=== PATIENT | male | born 1950 | race Caucasian/White ===

== ENCOUNTER 2023-01-08 15:39 | Outpatient (REF) | payer MEDICARE, SELFPAY ==
[2023-01-08 22:01] LABS: Bilirubin Negative (Negative); Blood Negative (Negative); Clarity Cloudy (Clear); Glucose Negative (Negative); Ketones Negative (Negative); Leukocyte Esterase Negative (Negative); Nitrite Negative (Negative); Specific Gravity >= 1.030 (1.005-1.025); Urobilinogen 0.2 mg/dL (Up to 0.2)
[2023-01-08 22:15] LABS: Hemoglobin A1C 5.6 % (<5.7)
[2023-01-08 22:37] LABS: Vitamin D 25 Total 27.1 ng/mL (30-100)
[2023-01-08 22:44] LABS: ALT 46 U/L (16-63); AST 36 U/L (15-37); Albumin 3.9 g/dL (3.4-5.0); Alkaline Phosphatase 74 U/L (46-116); Anion Gap 8.1 mmol/L (3-11); BUN 25 mg/dL (7-18); Bilirubin, Total 0.3 mg/dL (0.2-1.0); CO2 28.9 mmol/L (21.0-32.0); CREATININE 0.8 mg/dL (0.70-1.30); Calcium 8.8 mg/dL (8.5-10.1); Chloride 107 mmol/L (98-107); Estimated GFR 93.45 (mL/min/1.73m2); Folate > 20.0 ng/mL (8.6-20.0); Glucose 82 mg/dL (74-106); Potassium 3.9 mmol/L (3.5-5.1); Sodium 144 mmol/L (136-145); TSH (W/Ref FT4) 2.21 uIU/mL (0.36-3.74); Total Protein 7.3 g/dL (6.4-8.2); Vitamin B12 520 pg/mL (193-986)
[2023-01-10 02:10] LABS: PSA, Screening 4.5 ng/mL (<=6.5)
== END 2023-01-08 15:40 | disposition home or self-care (01) ==
LOC: NCHCN 15:39
PROVIDERS: Visit Provider Family Medicine
DX: R41.3 Other amnesia (principal); R35.0 Frequency of micturition; R27.9 Unspecified lack of coordination; E66.3 Overweight; N52.9 Male erectile dysfunction, unspecified; E55.9 Vitamin D deficiency, unspecified; R79.89 Other specified abnormal findings of blood chemistry; Z12.5 Encounter for screening for malignant neoplasm of prostate
CPT/HCPCS: 80053; 82306; 84153; 81003; 82607; 82746; 83036; 84443

== ENCOUNTER 2023-01-21 08:31 | Outpatient (REF) | payer MEDICARE, SELFPAY ==
[2023-01-21 15:16] LABS: Calculated LDL 100 mg/dL (<100); Cholesterol 180 mg/dL (<200); HDL Cholesterol 56 mg/dL (40-60); Triglyceride 120 mg/dL (<150)
== END 2023-01-21 08:32 | disposition home or self-care (01) ==
LOC: NCHCN 08:31
PROVIDERS: Visit Provider Family Medicine
DX: Z13.220 Encounter for screening for lipoid disorders (principal)
CPT/HCPCS: 80061

== ENCOUNTER 2024-10-17 15:34 | Outpatient (REF) | payer MEDICARE, SELFPAY ==
[2024-10-17 16:31] LABS: Abs Immature Grans 0.02 10^3/uL (0.0-0.06); Absolute Basophil Count 0.06 10^3/uL (0.0-0.2); Absolute Eosinophil Count 0.32 10^3/uL (0.0-0.7); Absolute Lymphocyte Count 1.79 10^3/uL (1.2-3.4); Absolute Monocyte Count 0.48 10^3/uL (0.1-0.8); Absolute Neutrophil Count 5.01 10^3/uL (1.2-6.7); Basophils % 0.8 %; Eosinophils % 4.2 %; HCT 43.4 % (40.0-50.0); HGB 14.7 g/dL (13.5-17.5); Immature Grans % 0.3 %; Lymphocytes % 23.3 %; MCH 30.2 pg (27.0-33.0); MCHC 33.9 % (32.0-36.0); MCV 89 fL (80-95); MPV 10.3 fL (8.0-11.0); Monocytes % 6.3 %; Neutrophils % 65.1 %; Platelet Count 261 10^3/uL (130-400); RBC 4.87 10^6/uL (4.36-5.78); RDW 12.4 % (11.8-14.1); RDW-SD 40.5 fL; WBC 7.68 10^3/uL (4.4-10.8)
[2024-10-17 17:24] LABS: ALT 31 U/L (16-63); AST 25 U/L (15-37); Albumin 4.1 g/dL (3.4-5.0); Alkaline Phosphatase 77 U/L (46-116); Anion Gap 11.2 mmol/L (3-11); BUN 19 mg/dL (7-18); Bilirubin, Total 0.38 mg/dL (0.2-1.0); CO2 25.8 mmol/L (21.0-32.0); CREATININE 0.9 mg/dL (0.70-1.30); Calcium 9.5 mg/dL (8.5-10.1); Calculated LDL 35 mg/dL (<100); Chloride 105 mmol/L (98-107); Cholesterol 111 mg/dL (<200); Estimated GFR 89.07 (mL/min/1.73m2); Glucose 96 mg/dL (74-106); HDL Cholesterol 57 mg/dL (40-60); Potassium 3.9 mmol/L (3.5-5.1); Sodium 142 mmol/L (136-145); Total Protein 7.7 g/dL (6.4-8.2); Triglyceride 99 mg/dL (<150)
[2024-10-18 18:08] LABS: PSA, Screening 3.1 ng/mL (<=6.5)
== END 2024-10-17 15:35 | disposition home or self-care (01) ==
LOC: NCHCN 15:34
PROVIDERS: PCP Family Medicine; Visit Provider Family Medicine
DX: E78.5 Hyperlipidemia, unspecified (principal); R35.0 Frequency of micturition; I10 Essential (primary) hypertension
CPT/HCPCS: 80053; 80061; 84153; 85025

== ENCOUNTER 2024-11-10 15:21 | Outpatient (CLI) | payer MEDICARE, SELFPAY ==
--- NOTE | 2024-11-10 09:45 | DI.RAD_ITS ---
Exam(s) XR KNEE RT 3V AP,LAT,AGUSTINA EXAM: XR KNEE RT 3V AP,LAT,AGUSTINA CLINICAL HISTORY: right knee pain. TECHNIQUE: 2D digital imaging was performed. Three images were obtained. Merchant's, AP and lateral views were obtained. COMPARISON: DX MO KNEE RIGHT MIN 4V from 07/01/2018 FINDINGS: BONES: There are stable post operative changes of a unilateral right knee arthroplasty present. No f racture or dislocation. JOINTS: The orthopedic hardware is in good position. No evidence of hardware loosening. There are d egenerative changes seen in the lateral femoral tibial patellofemoral joint characterized by joint sp varinder narrowing and osteophytes. There is a small joint effusion. SOFT TISSUE: Normal. IMPRESSION: 1. Stable unilateral right knee arthroplasty. 2. Moderate degenerative changes of the right knee. DATA REPOSITORY: RADIATION DOSE DELIVERED:
--- NOTE | 2024-11-10 09:45 | DI.RAD_ITS ---
Exam(s) XR KNEE LT 3V AP,LAT,AGUSTINA EXAM: XR KNEE LT 3V AP,LAT,AGUSTINA CLINICAL HISTORY: left knee pain. TECHNIQUE: 2D digital imaging was performed. Three images were obtained. Merchant's, AP and lateral views were obtained. COMPARISON: CR XR KNEE 4V LT from 09/03/2023 FINDINGS: BONES: There are stable post operative changes of a left unilateral knee arthroplasty present. No fr acture or dislocation. JOINTS: The orthopedic hardware is in good position. No evidence of hardware loosening. There is a joint effusion. Degenerative changes are seen in the lateral joint compartment characterized by join t space narrowing. There osteophytes seen at the posterior patella. SOFT TISSUE: Vascular calcifications are present. IMPRESSION: Stable left unilateral knee arthroplasty. DATA REPOSITORY: RADIATION DOSE DELIVERED:
== END 2024-11-10 15:22 | disposition home or self-care (01) ==
LOC: DIORS 15:21
PROVIDERS: PCP Family Medicine; Referring Provider Family Medicine; Visit Provider Student in an Organized Health Care Education/Training Program
DX: M17.11 Unilateral primary osteoarthritis, right knee (principal); M17.12 Unilateral primary osteoarthritis, left knee
CPT/HCPCS: 73562; 99203

== ENCOUNTER 2024-11-16 01:51 | Outpatient (CLI) | payer MEDICARE, SELFPAY ==
--- NOTE | 2024-11-16 06:45 | DI.NM_ITS ---
Exam(s) NM BONE SCAN 3 PHASE EXAM: NM BONE SCAN 3 PHASE CLINICAL HISTORY: PAIN, ?LOOSENING JOHNATHAN KNEE,bilat oa,M17.12,m17.11. TECHNIQUE: Injected Dose: 25 mCi Tc-99m MDP COMPARISON: DX MO KNEE RIGHT MIN 4V from 07/01/2018 CR XR KNEE 4V LT from 09/03/2023 CR XR KNEE RT 3V AP,LAT,AGUSTINA from 11/10/2024 CR XR KNEE LT 3V AP,LAT,AGUSTINA from 11/10/2024 FINDINGS: Perfusion: Symmetric. Blood Pool: Mild increased activity around the left knee. Delayed: Mildly increased activity seen on beneath the tibial components of both medial femoral tibia l joint space prostheses. Findings are greater on the left. Findings are suspicious for loosening. IMPRESSION: 1. Hyperemia around the left knee. Increased activity, left greater than right adjacent to the tibia l component of the the knee prosthesis bilaterally, left greater than right which could indicate loos ening. DATA REPOSITORY:
== END 2024-11-16 02:11 ==
LOC: DI 01:51
PROVIDERS: PCP Family Medicine; Visit Provider Student in an Organized Health Care Education/Training Program
DX: M17.0 Bilateral primary osteoarthritis of knee (principal); Z98.890 Other specified postprocedural states; Z96.653 Presence of artificial knee joint, bilateral
CPT/HCPCS: 78315

== ENCOUNTER 2025-01-23 13:42 | Outpatient (CLI) | payer MEDICARE, SELFPAY ==
--- NOTE | 2025-01-23 10:45 | DI.RAD_ITS ---
Exam(s) XR STANDING ALIGNMENT EXAM: XR STANDING ALIGNMENT CLINICAL HISTORY: TKR Planning. TECHNIQUE: 2D digital imaging was performed. Standing AP views were performed from the pelvis throu gh the ankles. COMPARISON: DX MO KNEE RIGHT MIN 4V from 07/01/2018 CR XR KNEE 4V LT from 09/03/2023 CR XR KNEE RT 3V AP,LAT,AGUSTINA from 11/10/2024 CR XR KNEE LT 3V AP,LAT,AGUSTINA from 11/10/2024 NM NM BONE SCAN 3 PHASE from 11/16/2024 FINDINGS: BONES: No acute fracture is present. No bony destructive lesion is seen. Leg length discrepancy: There is a minimal overall leg length discrepancy, with the right femoral hea d projecting few millimeter superior to the left. JOINTS: Knees: Bilateral medial femoral tibial joint space prostheses. There is some lateral subluxa tion of the tibia respect with respect to the femur bilaterally. There is flattening of the tibial s pines and spurring at the femoral intercondylar notch bilaterally. There is mild bilateral varus ang ulation at the knees. The ankle joints show mild, symmetric bilateral joint space narrowing. The hip joints are unremarkable. SOFT TISSUE: Normal. IMPRESSION: Bilateral medial femoral tibial joint space prostheses. Mild leg length discrepancy. DATA REPOSITORY: RADIATION DOSE DELIVERED:
== END 2025-01-23 13:43 | disposition home or self-care (01) ==
LOC: DIORS 13:42
PROVIDERS: PCP Family Medicine; Referring Provider Family Medicine; Visit Provider Student in an Organized Health Care Education/Training Program
DX: T84.033A Mechanical loosening of internal left knee prosthetic joint, initial encounter (principal); M21.751 Unequal limb length (acquired), right femur
CPT/HCPCS: 99213; 77073

== ENCOUNTER 2025-02-08 21:46 | Outpatient (REF) | payer MEDICARE, SELFPAY ==
[2025-02-08 22:00] LABS: HCT 40.5 % (40.0-50.0); HGB 13.3 g/dL (13.5-17.5); MCH 29.8 pg (27.0-33.0); MCHC 32.8 % (32.0-36.0); MCV 91 fL (80-95); MPV 10.3 fL (8.0-11.0); Platelet Count 247 10^3/uL (130-400); RBC 4.47 10^6/uL (4.36-5.78); RDW 13.3 % (11.8-14.1); RDW-SD 44.6 fL; WBC 6.15 10^3/uL (4.4-10.8)
[2025-02-08 22:05] LABS: Anion Gap 2.3 mmol/L (3-11); BUN 20 mg/dL (7-18); CO2 30.7 mmol/L (21.0-32.0); Calcium 8.7 mg/dL (8.5-10.1); Chloride 107 mmol/L (98-107); Estimated GFR 78.49 (mL/min/1.73m2); Glucose 92 mg/dL (74-106); Potassium 3.8 mmol/L (3.5-5.1); Sodium 140 mmol/L (136-145)
== END 2025-02-08 21:47 | disposition home or self-care (01) ==
LOC: NCHCN 21:46
PROVIDERS: PCP Family Medicine; Visit Provider Family Medicine
DX: Z01.818 Encounter for other preprocedural examination (principal)
CPT/HCPCS: 80048; 85027

== ENCOUNTER 2025-02-22 09:55 | Inpatient (IN) | payer MEDICARE, SELFPAY ==
[2025-02-22] VITALS (28 sets, daily range): BP systolic 86–131; BP diastolic 45–82; PULSE 47–63; RESP 9–22; TEMP 35.9–36.9; O2SAT 83–96; BMI 28.4
[2025-02-22] MEDS: Acetaminophen 500 MG TAB 1000 MG PO ×3 (10:39→20:24)
[2025-02-22] MEDS: Celecoxib 200 MG CAP 400 MG PO (10:39)
[2025-02-22] MEDS: Lactated Ringers 1,000 ML 80 ML IV (10:39)
[2025-02-22] MEDS: Gabapentin 300 MG CAP PO ×3 (10:40→20:25)
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
--- NOTE | 2025-02-22 12:21 | W.ANESNERVE ---
Nerve Block Single Injection Procedure Date and Time Date Performed: 02/22/25 Procedure Start: 11:55 Location Where Procedure Performed Procedure Location: Day Surgery Unit Reason Performed: Postoperative Analgesia Requesting Provider: John Nathan Timeout Performed Timeout Performed: Yes Monitoring Used ECG, Blood Pressure, SpO2 and See EMR for corresponding vital signs Sterility Sterility: Hand Hygiene, Surgical Cap, Surgical Mask, Sterile Gloves and Chlorhexidine Sedation Given During Procedure Sedation Given (Indicate Dose Given): No Sedation given Patient Mental Status Patient Mental Status: Awake Nerve Block 1st Nerve Block: Laterality: Left Block Type: Adductor Canal Ultrasound Image Saved?: Yes Needle / Catheter Used: 100mm SonoPlex II Local Anesthetic Bolus (Indicate Dose Given): Lidocaine used for local infiltration of skin, Injected in 3-5ml increments after negative blood aspiration, Bupivacaine 0.25% Dose:: 5 ml and Exparel Dose:: 5 ml Additives (Indicate Dose Given): Normal Saline Ultrasound: Sterile probe cover and gel used Nerve Stimulator: Supplement to Ultrasound use and No twitch or parasthesia noted < 0.5 mA Paresthesia: None Procedure Tolerated: No Complications and Patient tolerated well Procedure Outcome: Successful Performed By: Hernán Roberson Supervised By: Thomas Yi 2nd Nerve Block: Laterality: Left Block Type: Other (anterior femoral cutaneous nerve of the thigh) Ultrasound Image Saved?: Yes Needle / Catheter Used: 100mm SonoPlex II Local Anesthetic Bolus (Indicate Dose Given): Lidocaine used for local infiltration of skin, Injected in 3-5ml increments after negative blood aspiration, Bupivacaine 0.25% Dose:: 5 ml and Exparel Dose:: 5 ml Additives (Indicate Dose Given): Normal Saline Ultrasound: Sterile probe cover and gel used Nerve Stimulator: Supplement to Ultrasound use and No twitch or parasthesia noted < 0.5 mA Paresthesia: None Procedure Tolerated: No Complications and Patient tolerated well Procedure Outcome: Successful Performed By: Hernán Roberson Supervised By: Thomas Yi
[2025-02-22] MEDS: ceFAZolin 2 GM/50 ML BAG IVPB (12:49)
[2025-02-22] MEDS: TRANEXAMIC ACID/SOD. CHL. 1,000 MG/100 ML BAG 600 MG IVPB (12:53)
--- NOTE | 2025-02-22 15:20 | ROE_ITS ---
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 Depuy Attune Cruciate Retaining Femoral Component, Size 7 2. Depuy Attune Fixed Bearing Tibial Component, Size 7 3. Depuy Attune 7x12 CR, FB Poly 4. Depuy Attune Patellar Component, Size 38 Indications: I have seen Manuel in clinic for symptoms of knee arthritis, confirmed with radiographic findings. Manuel has exhausted nonoperative methods and was having significant limitations in daily function and desired better function and less pain. I discussed the technical details of a knee replacement. I explained the risks of the procedure to include, but not limited to, bleeding, infection, pain, stiffness, fracture, damage to nerves and vessels, damage to muscles and tendons, loosening, need for repeat procedure, blood clot and cardiopulmonary demise. Despite these risks, Manuel elected to proceed. 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 The polyethylene was worn down so there was a vzcqc-[id number]-utsco articulation. The component of the tibia was quite loose. The femur was more well-fixed. Intraoperative navigation was utilized to assist with making the initial cuts and a cemented knee replacement was placed. Procedure Description: Jose was greeted in the preoperative holding area where the correct side was identified and marked. The consent was reviewed with the patient and signed. The history and physical was updated. All questions were answered. Preoperative mediacations were administered: Acetaminophen 1000mg, Celebrex 400mg, Gabapentin 300mg, and Oxycontin 10mg. An adductor canal block was then administered by the anesthesia team in the [facility]. He was taken back to the operating room. A spinal anesthestic was then administered. The patient was placed into the supine position on the operating room table. A nonsterile tourniquet was placed high onto the leg but only used for cementing. Posts were placed for positioning during the procedure. All bony prominences were well padded. Prophylactic antibiotics in the form of Cefazolin were administered. 1g of Tranxemic Acid was given intravenously within 30 minutes of incision. The left leg was then prepped with Chloraprep and draped in a standard fashion with impervious stockinette and extremity drape with Iodine impregnated skin protection. A timeout to confirm correct identity, side and site, procedure, allergies, anesthesia, and medical concerns was performed. With the knee in some flexion, a midline incision was made overlying the knee utilizing the previous incision and extending it proximally and distally by few centimeters. Full thickness skin flaps were raised once the extensor mechanism was encountered. These were raised medially and laterally. Any bleeding was controlled with electrocautery. Once the extensor mechanism was fully exposed, a medial parapatellar arthrotomy was performed in a flexed position. All bleeding from the arthrotomy and the geniculate arteries was coagulated. 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 An aggressive synovectomy was performed removing any of this metal stained synovium. After completion of the synovectomy, A medial subperiosteal peel was performed with electrocautery to the midcoronal plane. It was evident at this point that the polyethylene was worn down such that there was [id number] articulation exposed metal of the tibial component anteriorly and medially and the tibial component was relatively loose. The fat pad was removed while keeping the patellar tendon protected. The ACL and PCL were resected and the anterior horn of the lateral meniscus was transected. The knee was then flexed with the patella everted. Prominence of bone and soft tissue from around the femoral component removed for better visualization of the interface between the implant and the cement and bone. I then used a small blade, oscillating saw, 2 separate the cement mantle from the bone and the implant of the femoral component. This was done medially and laterally. I then used a small straight osteotome to remove the component. There was no significant bone loss. A single starting pin was then placed 1cm anterior to the PCL insertion and the notch in the direction of the femoral head. The OrthoAlign device was applied over the pin. It was oriented to be in line with the epicondylar axis and the trochlear groove. It was then pinned into place. The navigation computer was then turned on and calibrated. The distal femur cut was set at 0 degrees varus/valgus and 3.5 degrees flexion. The distal femur cutting guide then was positioned for a 9mm cut from the lateral condyle. The distal femur was cut with an oscillating saw while protecting the soft tissues. This skim the medial side getting fresh bone of the medial femoral condyle. A small plug of cement was removed. The tibia was then addressed. The OrthoAlign device was placed over the tibial tubercle and medial tibia and secured into position. Once again, OrthoAlign was calibrated and then set for a 1.5 degree varus cut and 5.5 degrees of posterior slope. With this locked into position, the cut thickness stylus was used to assess cut thickness. The cut guide was placed just distal to the distal edge of the component. This was then held in position and pinned into place with 2 additional pins and a cross pin for stability. The medial and lateral collateral ligaments were protected and the cut was performed. Before the cut could be completed I used a small flex osteotome to complete the cut around the pegs of the tibial component and use an osteotome to remove it from the host bone. It was relatively loose and was removed without any significant bone loss. I then completed the cut once again with the component gone which went through bone and no remnant cement. With this completed, it was assessed and noted to be of appropriate dimensions. The guide and OrthoAlign was removed. The Orthoalign gap balancing device was then placed in extension. This was used to ensure that the ligaments were properly balanced with up to 2 to 3 mm laxity laterally compared medially. The extension gap was measured as 24mm. The knee was then brought into 90 degrees of flexion and the ligament stringer machine tender was once again placed. Under the same amount of force the flexion gap was measured. The Attune specific jig was placed and the flexion gap was made to match the extension gap. The distal femur was then sized. The anterior stylus was placed onto the lateral ridge of the anterior femur. This indicated a size 7 femur. The 4-in-1 cutting guide was the placed. The posterior medial femur cut was evaluated and appeared of good thickness. The spacer block was inserted underneath the cutting guide and stability was confirmed in 90 degrees of flexion. An justin wing was used to confirm appropriate position of the anterior cut to avoid notching. This cutting guide was ensured to be flush on the cut surface and then pinned into place with headed pins. While protecting the soft tissues, quad tendon, and collateral ligaments, the anterior and posterior cuts were performed with a saw. The central two pins were removed and the posterior and anterior chamfers were cut next. At this point there were no defects in the bone. There is no need for augmentation and thus I decided to proceed with primary tibial and femoral implant, cemented. The notch-cutting guide was placed. This was pinned to lateralize the femoral component as much as possible while keeping it flush on the cut surface. This was then pinned into position. A saw was then used to create the box cut. A trial CR femur was placed. A provisional trial tibial component was placed and the knee was brought through range of motion. There was noted to be excellent extension and flexion. There was no significant instability. The patella was tracking without thumbs. The tibial cut surface was fully exposed. The medial and lateral menisci were removed. The tibia was then sized as a 7. The tibia had been previously marked during trialing to correspond to the center of the tibial component to help with rotation. The trial was aligned to this gregoria, approximately rotated to the medial 1/3rd of the tibial tubercle. The trial was pinned into place. The tibia was prepared with a reamer and a keel punch. The knee was then brought into extension and the patella was measured as 26mm. Using the patellar clamp and cut guide, this was resected to a flat surface with at least 13mm of thickness remaining. The size 38mm patella fit the best. This was oriented and then clamped into position. The lugs were drilled. The trial components were removed. The final components, except for the polyethylene were opened on the back table. The periosteal and capsular tissues, especially posteriorly, around the knee were then systematically injected with a periarticular cocktail consisting of 246mg of Ropivacaine, 0.5mg of Epinephrine, 0.08mg of Clonidine, and 30mg of Ketorolac, diluted to 100cc. The knee was thoroughly irrigated with a pulse lavage and dried. On the back table, with the implants opened, the cement was mixed. 2 batches of medium viscosity cement were prepared with vacuum assistance. After the cement was ready a small amount was placed on to the back side of the tibial component at the keel. A small amount was placed onto the posterior flange of the femur. Cement was manual pressurized and impregnated into the cut surface of the tibia. The tibial component was then inserted into the cut surface and impacted into position. Excess cement was removed and the component was reimpacted. Again, excess cement was removed and our attention was then turned to the femur. The femoral cut surface was once again dried and cement was manually impacted into the cut surface. The femoral component was lined with the lug holes and impacted. Excess cement was removed. It was ensured to be down against the cut surface. The trial polyethylene was then inserted and the leg was brought out into full extension for the duration of the cement curing process, approximately 15min. Cement was lastly manually impacted into the cut surface of the patella and the patellar button was clamped into position and held. During this process attention was turned to the gutters of the knee and for all interfaces for any excess cement. The knee was then thoroughly irrigated with Surgiphor Betadine solution. It was allowed to sit in the knee for 3 minutes before being irrigated out with saline. After the cement had finally cured, approximately 18min, the clamp was removed from the patella and the knee was taken through range of motion. A size 12mm polyethylene component provided the best range of motion and stability with less than 2mm gapping with medial and lateral stress and full extension without significant hyperextension. The patella was tracking with a no-thumbs technique. The trial poly was removed and once again the knee was checked for any loose, excess, or errant cement. The poly component was then inserted into position after cleaning and drying the tibial tray. The capsule was then reapproximated with a No. 2 Fiberwire and a No. 1 Vicryl at multiple locations. The capsule was finally closed with a No. 2 Stratafix, barbed suture. Deep tissues were then reapproximated with 0 Vicryl and 2-0 Vicryl. The skin was closed with a running 3-0 Monocryl in a subcuticular fashion. This was reinforced with skin glue and mesh. A Mepilex silver dressing was applied along with a gfiy-uf-vxsob MARY wrap. A CryoCuff was applied. Manuel was transferred to the hospital bed without difficulty an suffering no apparent complication. Manuel has a good prognosis. Physical therapy will start today and without restrictions, weight-bearing as tolerated. Aspirin 81mg BID will be used for DVT prophylaxis. Date of Procedure: 02/22/25
--- NOTE | 2025-02-22 15:26 | W.ANESPOSTOP ---
Postoperative Evaluation Date, Time and Location Date Performed: 02/22/25 Time Performed: 15:26 Patient Location: PACU Vital Signs Most Recent Imported Vital Signs: Most Recent Vital Signs Temp Pulse Resp BP Pulse Ox 36.4 C L 59 L 18 120/54 L 93 02/22/25 15:15 02/22/25 15:15 02/22/25 15:15 02/22/25 15:15 02/22/25 15:15 Pain Score Most Recent Pain Score: Most Recent Pain Score Pain Level 0 02/22/25 15:15 Assessment Mental Status: Awake (Alert & Oriented to Patient Baseline) Airway and Respiratory Function: Patent airway with normal (patient baseline) respiratory exam Cardiovascular Function: Hemodynamically Stable Hydration Status: Adequately Hydrated Nausea & Vomiting: No Nausea or Vomiting Pain: Pt. Denies Any Pain Peripheral Nerve Block: Regional nerve block not resolved at time of post operative discharge Postoperative Comments:: Spinal wearing off appropriately, orders in regarding spinal management for the floor.
--- NOTE | 2025-02-22 17:54 | PT.INIE ---
PT Notes Physical Therapy Day Surgery Initial Evaluation Date: 02/22/2025 Referring Doctor: TASHIA Arango; Dr. Nathan PT Orders: PT CONSULT: Status post Ortho surgery Precautions: WBAT left LE Patient Profile/Admitting Diagnosis: Patient is 74-year-old male admitted status post revision of left knee replacement with tibial component loosening by Dr. Nathan on 02/22/2025. 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 Status post right partial knee replacement (Acute) Status post left partial knee replacement (Acute) Osteoarthritis of right knee (Acute) Osteoarthritis of left knee (Acute) Medical History (Updated 11/26/24 @ 05:40 by John Nathan MD) Erectile dysfunction GERD (gastroesophageal reflux disease) Hypertension Ulcerative colitis Surgical History (Updated 11/26/24 @ 05:40 by John Nathan MD) History of cataract surgery H/O craniotomy BIKE ACCIDENT---AGE 8History of partial knee replacement BILATERALHistory of cholecystectomy History of appendectomy Social History/Home Situation: Patient resides in single-family home with 1 step to enter. Primary bedroom on second floor with flight of stairs and 1 rail to enter patient has walk-in shower. drives and provides meals. Equipment Owned/DME: Cane; patient fitted for and issued FWW from [facility] Subjective: Patient reports he has no pain. Patient's reports he has a long walkway to get to home then 1 step. Patient's reports he will be staying on the first floor in their TV room which has a bed and bathroom is located down the johnson. Objective: [] General Observation: Male upright in bed Cryo/Cuff to left knee present IV fluids infusing right upper extremity Mental Status: Alert and oriented to person place time and situation. Patient referred to for home set up. Able to follow multistep instructions agreeable to participate in eval Pain: Denies at this time ROM: [] Right Upper Extremity: WNL Left Upper Extremity: WNL Right Lower Extremity: WFL Left Lower Extremity: Within normal limits except knee 0-96 degrees Strength: [] Right Upper Extremity: 5/5 Left Upper Extremity: 5/5 Right Lower Extremity: 5/5 Left Lower Extremity: Patient able to demonstrate straight leg raise without quad lag after cue to initiate SLR with quad set. Patient demonstrates impaired motor control of left quad during functional tasks Sensation: Intact to light touch and deep pressure left lower extremity except plantar aspect of foot patient reports numbness and buttocks feels numb Bed Mobility/Transfers: [] Supine to sit [] supervision Sit to stand SBA with cues for hand placement Stand to sit SBA with cues for hand placement Bed to chair SBA with FWW Gait: Ambulated with FWW with contact-guard assist cues for quad activation at mid stance due to knee instability reduced step length foot flat at weight acceptance impaired knee flexion in swing phase on left Balance: [] Static Sitting: Normal Dynamic Sitting: Good Static Standing: Good Dynamic Standing: Fair Special Tests: [] Mobility Limitations Standardized Measure [] [facility] [employer] [facility] AM-PAC 6 clicks Basic Mobility Inpatient Short Form: [] Raw Score: 20 CMS Score: 35.83% Informed Consent/Education: Patient instructed in purpose of PT consult. Treatment: 08130 packet containing TKA exercise protocol has been given to patient. Education and training on initial set of 10 reps of exercises that can be done at home have been completed with patient. Assessment: Patient initially presented to the unit with low BPs and nurse requesting patient to remain bed level until after he eats. His BP after meal improved to 114/61 patient able to participate in out of bed assessment at that time. Patient noted numbness to plantar aspect of foot and stated his buttocks was numb and cold nurse notified. Patient is a 74-year-old male who presents with clinical signs and symptoms consistent with current/admitting diagnoses that have resulted to mobility limitations, gait instability, generalized weakness, and impairment of motor control as demonstrated by the following impairment level findings: 1. Decreased strength to left knee major muscle groups 2. Impaired standing balance 3. Limitation of joint range of motion in left knee 4. Impaired sensation left foot Impairments are contributing to the following functional limitations: 1. Inability to safely ambulate without assistive device 2. Increase completion time for mobility ADL performance 3. Increased fall risk 4. Difficulty performing stairs safely Patient is assessed as a moderate complexity based on the following: History: 74-year-old male with impairment level findings, functional limitations, and past medical history as indicated above Examination: Demonstrable impairment in strength, balance, and mobility level with underlying impairments and functional limitations as documented above Presentation: Evolving Decision Making: Moderate Goals x 1 day 1. Independent transfers with FWW 2. Supervised ambulation with FWW 150 feet x 2 3. Supervised 5 stairs with 1 rail 4. Contact-guard assist 1 platform step with FWW Plan of Care/Treatment Plan: PT evaluation and 1-2 treatment session only for functional mobility training using recommended AD and for HEP instruction. DISCHARGE RECOMMENDATIONS: Home with home exercise program and outpatient PT as scheduled TREATMENT CODE/TIME: [id number], [id number], [id number] Thank you for the opportunity to participate in the care of this patient. Tia Bearden, PT [facility]
[2025-02-22] MEDS: Aspirin E.C. 81 MG TABEC PO (20:24)
[2025-02-22] MEDS: Atorvastatin 20 MG TAB PO (20:24)
[2025-02-22] MEDS: Celecoxib 200 MG CAP PO (20:25)
[2025-02-22] MEDS: Tranexamic Acid 650 MG TAB 1300 MG PO (20:25)
[2025-02-22] MEDS: ceFAZolin 1 GM/50 ML BAG IVPB (20:26)
[2025-02-22] MEDS: Normal Saline Flush 10 ML SYR IV (20:27)
[2025-02-22] MEDS: Finasteride 5 MG TAB PO (21:23)
[2025-02-22] MEDS: oxyCODONE 5 MG TAB PO (22:20)
[2025-02-23] MEDS: oxyCODONE 5 MG TAB PO (01:33)
[2025-02-23] MEDS: Normal Saline Flush 10 ML SYR (04:35)
[2025-02-23] MEDS: ceFAZolin 1 GM/50 ML BAG IVPB (04:39)
[2025-02-23 07:37] VITALS: BP 110/71; PULSE 47; RESP 18; TEMP 36.8; O2SAT 91
[2025-02-23] MEDS: Celecoxib 200 MG CAP PO (07:53)
[2025-02-23] MEDS: Sertraline 100 MG TAB 200 MG PO (07:53)
[2025-02-23] MEDS: Aspirin E.C. 81 MG TABEC PO (07:53)
[2025-02-23] MEDS: Losartan 50 MG TAB PO (07:53)
[2025-02-23] MEDS: Acetaminophen 500 MG TAB 1000 MG PO (07:53)
[2025-02-23] MEDS: Dexamethasone 4 MG TAB PO (07:53)
[2025-02-23] MEDS: hydroCHLOROthiazide 25 MG TAB PO (07:54)
[2025-02-23] MEDS: Multivitamin TAB 1 TAB PO (07:54)
[2025-02-23] MEDS: Pantoprazole 40 MG TABCR PO (07:54)
[2025-02-23] MEDS: Finasteride 5 MG TAB PO (07:54)
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
--- NOTE | 2025-02-23 08:52 | PDOC.CMDIS ---
Date of service: 02/23/25 Time of Service: 08:53 LACE Index Scoring Tool Questions: Length of Stay (in days): 1 Was the patient admitted via the E.D.?: No E.D. Visits: 0 Answers: Total Score: 1 Risk of Readmission: Low Risk Care Management Discharge Plan Reason for Hospitalization: Left Knee Prosthesis Loosening Discharge Plan: Manuel will be discharged home today. He will follow up with outpatient PT, his surgical team, PCP and continue per his discharge plan of care. Manuel will transport via private vehicle by his . Patient/Family Education Needs: Review of discharge instructions, activity, limitations, and plan of care. Discuss Ask Me Three. Services Needed at Discharge: Outpatient Therapy (PT) SDOH Health Related Social Needs: No Data to Display
--- NOTE | 2025-02-23 09:23 | PTTR_ITS ---
PT Notes Visit Reasons: Left Knee Prosthesis Loosening Inpatient Physical Therapy Treatment Note [facility] Date: 02/23/2025 PRECAUTIONS: WBAT left LE SUBJECTIVE: Patient reports he feels great and is looking forward to going home OBJECTIVE: Male upright in bed, patient agreeable to participate ? PAIN: Denies Therapeutic Activities : Direct one-on-one instruction in dynamic activities to improve functional performance. ? BED MOBILITY/TRANSFERS? Rolling L/R: Independent Supine-sit: Independent? Sit-supine: Independent? Sit-stand: SBA? Stand-sit: SBA? Bed-Chair: SBA with FWW ? Chair-bed: SBA with FWW Provided skilled cues and instruction on performance and technique throughout. Gait Training (83325): Direct one-on-one instruction and skilled instruction in: [] employing an assistive device [] modified weight-bearing status [X] movement sequencing [] turning and movement with proper form [X] Provided verbal cues for equipment management and technique [X] Provided instruction in gait pattern [] Patient education regarding pacing and breathing techniques to maximize activity tolerance? GAIT? Assistive Device: FWW ? Weight bearing: WBAT Assist: SBA? Distance: 350 feet? Deviation: Reduced heel strike resulting in slight knee flexion through mid stance without cueing to activate quad ? STAIRS: 3 4 steps? and 2 6 steps with rails SBA with continuous cues for sequencing step to pattern ? x 2 trials? Therapeutic Exercises ([id number][]): Direct one-on-one instruction in therapeutic exercises to develop strength, endurance, range of motion and flexibility. - Provided cues throughout for technique to isolate quad as patient attempts to utilize accessory musculature to initiate quad set. ? Exercises: Left LE x 10 reps ?Supine; quad sets, heel slides, straight leg raise, ankle pumps, -hamstring stretch with towel roll at ankle 2 trials x 2 minutes Seated: LAQ, marching, seated heel slides Stand: Heel raises ASSESSMENT:?Patient tolerated session well. Patient requires cues for carryover of techniques. Patient with short-term memory deficit requiring cues to continue through 10 reps of exercises. Patient demonstrates reduced motor coordination during ambulation for quad activation at mid stance with noted intermittent knee flexion at mid stance on left. Patient instructed in heel strike technique and attempt to activate quad through mid stance. Patient with reduced insight into potential for knee buckling during ambulation. Patient instructed to perform home exercise program per TKA protocol 2 -3 times per day and emphasis on hamstring stretch with towel roll at ankle to promote knee extension. Patient fitted for and issued FWW from [facility]. PLAN: Continue with PT until discharged to home TREATMENT CODE/TIME: [id number], [id number] DISCHARGE RECOMMENDATION: Home with home exercise program and outpatient PT as scheduled
--- NOTE | 2025-02-23 11:25 | CHAPLAIN ---
I had a brief visit with Manuel just before he was discharged. His arrived to take him home.
== END 2025-02-23 11:07 | disposition home or self-care (01) | DRG 467 ==
LOC: PDS 10:13 → MS 15:55
PROVIDERS: Admitting Provider Student in an Organized Health Care Education/Training Program; PCP Family Medicine; Responsible Provider Nurse Practitioner Family; Visit Provider Student in an Organized Health Care Education/Training Program
PROC: 0SPD0JZ Removal of Synthetic Substitute from Left Knee Joint, Open Approach (ICD-10-PCS; CPT 27487; principal; 2025-02-22 12:45)
DX: T84.033A Mechanical loosening of internal left knee prosthetic joint, initial encounter (principal); F33.9 Major depressive disorder, recurrent, unspecified; K51.90 Ulcerative colitis, unspecified, without complications; E55.9 Vitamin D deficiency, unspecified; E78.5 Hyperlipidemia, unspecified; E66.3 Overweight; F41.9 Anxiety disorder, unspecified; R41.89 Other symptoms and signs involving cognitive functions and awareness; G47.33 Obstructive sleep apnea (adult) (pediatric); G47.61 Periodic limb movement disorder; I10 Essential (primary) hypertension; I45.10 Unspecified right bundle-branch block; R00.1 Bradycardia, unspecified; K21.9 Gastro-esophageal reflux disease without esophagitis
CPT/HCPCS: 27487; 20985; 64447; 64450; 97110; 97116; 97162; C1776; J0665; J0666; J0690; J1100; J2371; J2401; J2405; J2704; J8540

== ENCOUNTER → 2025-02-24 11:29 | Outpatient (BNVA) | payer MEDICARE, SELFPAY | PROVIDERS: PCP Family Medicine; Referring Provider Family Medicine; Visit Provider Physician Assistant | DX: Z48.89 Encounter for other specified surgical aftercare (principal); Z96.652 Presence of left artificial knee joint; T81.30XA Disruption of wound, unspecified, initial encounter | CPT/HCPCS: 99024 ==

== ENCOUNTER → 2025-02-27 07:49 | Outpatient (BNVA) | payer MEDICARE, SELFPAY | PROVIDERS: PCP Family Medicine; Referring Provider Family Medicine; Visit Provider Student in an Organized Health Care Education/Training Program | DX: Z47.1 Aftercare following joint replacement surgery (principal); Z96.652 Presence of left artificial knee joint; T81.30XA Disruption of wound, unspecified, initial encounter | CPT/HCPCS: 99024 ==

== ENCOUNTER 2025-03-09 11:10 | Outpatient (CLI) | payer MEDICARE, SELFPAY ==
--- NOTE | 2025-03-09 10:45 | DI.RAD_ITS ---
Exam(s) XR KNEE LT 1V XR STANDING ALIGNMENT EXAM: XR STANDING ALIGNMENT and XR knee LT 1 V CLINICAL HISTORY: 1ST POST OP L TKA. TECHNIQUE: 2D digital imaging was performed. Five images were obtained. COMPARISON: CR XR KNEE LT 3V AP,LAT,AGUSTINA from 11/10/2024 CR XR KNEE RT 3V AP,LAT,AGUSTINA from 11/10/2024 CR XR STANDING ALIGNMENT from 01/23/2025 FINDINGS: BONES: The hips are well maintained. In the right knee, there is again seen a unicompartmental knee arthroplasty. Orthopedic hardware appears stable. Degenerative changes are seen in the lateral right femoral tibial joint. Since the prior examination, there has been placement of a left total knee a rthroplasty. The orthopedic hardware appears in good position. The ankles are well maintained.There is no significant leg length discrepancy. SOFT TISSUE: Normal. IMPRESSION: Interval placement of a left total knee arthroplasty. DATA REPOSITORY: RADIATION DOSE DELIVERED:
== END 2025-03-09 11:11 | disposition home or self-care (01) ==
LOC: DIORS 11:11
PROVIDERS: PCP Family Medicine; Referring Provider Family Medicine; Visit Provider Physician Assistant
DX: Z47.1 Aftercare following joint replacement surgery (principal); Z96.652 Presence of left artificial knee joint
CPT/HCPCS: 99024; 73560; 77073

== ENCOUNTER 2025-03-30 13:20 | Outpatient (CLI) | payer MEDICARE, SELFPAY ==
--- NOTE | 2025-03-30 13:00 | DI.RAD_ITS ---
Exam(s) XR KNEE LT 3V AP,LAT,AGUSTINA EXAM: XR KNEE LT 3V AP,LAT,AGUSTINA CLINICAL HISTORY: F/U LEFT TKA. TECHNIQUE: 2D digital imaging was performed. Three views. COMPARISON: CR XR STANDING ALIGNMENT from 03/09/2025 CR XR KNEE LT 1V from 03/09/2025 FINDINGS: BONES: No acute fracture is present. No bony destructive lesion is seen. JOINTS: The knee prosthesis is normally aligned. No joint effusion is seen. SOFT TISSUE: Mild anterior swelling. IMPRESSION: Stable appearance of total knee prosthesis. DATA REPOSITORY: RADIATION DOSE DELIVERED:
== END 2025-03-30 13:21 | disposition home or self-care (01) ==
LOC: DIORS 13:20
PROVIDERS: PCP Family Medicine; Referring Provider Family Medicine; Visit Provider Student in an Organized Health Care Education/Training Program
DX: Z47.1 Aftercare following joint replacement surgery (principal); Z96.652 Presence of left artificial knee joint; M25.562 Pain in left knee
CPT/HCPCS: 99024; 73562

== ENCOUNTER → 2025-04-13 08:16 | Outpatient (BNVA) | payer MEDICARE, SELFPAY | PROVIDERS: PCP Family Medicine; Referring Provider Family Medicine; Visit Provider Physician Assistant | DX: Z47.1 Aftercare following joint replacement surgery (principal); Z96.652 Presence of left artificial knee joint | CPT/HCPCS: 99024 ==

== ENCOUNTER → 2025-07-03 08:08 | Outpatient (BNVA) | payer MEDICARE, SELFPAY | PROVIDERS: PCP Family Medicine; Referring Provider Family Medicine; Visit Provider Physician Assistant | DX: T84.032A Mechanical loosening of internal right knee prosthetic joint, initial encounter (principal); M17.11 Unilateral primary osteoarthritis, right knee; Z96.652 Presence of left artificial knee joint | CPT/HCPCS: 99214 ==